=== PATIENT | female | born 1965 | race Caucasian/White ===

== ENCOUNTER 2016-12-19 14:39 | Day surgery (SDC) | payer OTHER ==
[2016-12-19 15:03] VITALS: BP 133/84; PULSE 57; RESP 20; TEMP 98.4; O2SAT 98
--- NOTE | 2016-12-20 08:36 | RADRPT ---
EXAM DATE/TIME: 12/19/2016 00:00 [place] COMPARISON : No previous studies available for comparison. INDICATIONS : Consult for uterine fibroids OBJECTIVE: Temperature: 98.4 Heart Rate: 57 Blood Pressure: 133/84 Respiratory: 20 Oximetry: 98 HISTORY OF PRESENT ILLNESS: The patient is a 51-year-old with complaints of menorrhagia and dysfunctional uterine bleeding. The p atient underwent ultrasound imaging at [facility] which demonstrated multiple large fibroids within the uterus some measuring up to 8 cm in size. The patient has undergone endometrial biopsy whi ch was negative. The patient presents for uterine fibroid embolization. PAST MEDICAL HISTORY : 1. DEPRESSION PAST SURGICAL HISTORY : 1. TUBALIGATION 2. C4-C6 ABLATION OF SENSORY NERVES SOCIAL HISTORY : Social alcohol use. none. ALLERGIES: NKDA MEDICATIONS: 1. CELEXA 10 mg q.d. PHYSICAL EXAMINATION: Healthy 51-year-old with no current complaints. Previous H&P is on file from Dr. Rangel and Dr. Lin brown. IMAGING STUDIES: Report from the patient's ultrasound were reviewed. Reports describe multiple large fibroids within t he myometrium. The endometrial cavity is described as normal appearance. ASSESSMENT: The patient has documented uterine fibroids and a negative endometrial biopsy. The patient is present ly symptomatic with complaints of menorrhagia. The risk, benefits and potential complications of uterine fibroid embolization were discussed in [facility]. The risks included bleeding, infection, early menopause, postoperative pain and infarction of the uterus requiring hysterectomy. The patient voiced her understanding of the risks. The patient states she has researched fibroid embolization extensively via the Internet. PLAN: 1. The patient will be scheduled for uterine fibroid embolization. TIME SPENT: 20 minutes. Brennon Hernandez MD on December 20, 2016 at 8:26 Board Certified Radiologist. This report was verified electronically.
== END 2016-12-19 15:00 | disposition home or self-care (01) ==
LOC: HROP 14:39 → HRIP 14:43 → HROP 15:00
PROVIDERS: ATTEND Obstetrics & Gynecology
DX: D25.9 Leiomyoma of uterus, unspecified (principal)